=== PATIENT | female | born 1985 | race African-American/Black ===

== ENCOUNTER 2017-01-23 19:59 | Emergency (ER) | payer OTHER ==
[2017-01-23] VITALS (8 sets, daily range): BP systolic 125–167; BP diastolic 81–127
[~2017-01-23] VITALS: Ht 162.6 cm; Wt 63.5 kg
[2017-01-23 20:30] LABS: BASOPHILS % (AUTO) 1.8 % (0.0-2.0); EOSINOPHILS % (AUTO) 0.7 % (0.0-3.0); LYMPHOCYTES % (AUTO) 39.2 % (20.0-45.0); MEAN CORPUSCULAR HEMOGLOBIN 33.5 PG (27.0-31.0); MEAN CORPUSCULAR HGB CONC 34.5 G/DL (32.0-36.0); MEAN CORPUSCULAR VOLUME 97 FL (80-99); MEAN PLATELET VOLUME 7.3 FL (6.5-10.1); MONOCYTES % (AUTO) 6.2 % (1.0-10.0); NEUTROPHILS % (AUTO) 52.2 % (45.0-75.0); PLATELET COUNT 277 K/UL (150-450); RED BLOOD COUNT 4.53 M/UL (4.20-5.40); RED CELL DISTRIBUTION WIDTH 11.2 % (11.6-14.8); WHITE BLOOD COUNT 10.9 K/UL (4.8-10.8)
[2017-01-23 20:46] LABS: TROPONIN I < 0.30 ng/mL (<=0.30)
[2017-01-23 20:49] LABS: ALANINE AMINOTRANSFERASE 22 U/L (3-33); ALBUMIN/GLOBULIN RATIO 1.5 (1.0-2.7); ANION GAP 19 (5-15); ASPARTATE AMINO TRANSFERASE 21 U/L (5-40); CALCIUM 10.2 mg/dL (8.6-10.2); CARBON DIOXIDE 18 mEQ/L (20-30); CHLORIDE 99 mEQ/L (98-107); GLOMERULAR FILTRATION RATE > 60 mL/min (>60); HEMOLYSIS 10; POTASSIUM 3.1 mEQ/L (3.4-4.9); SODIUM 136 mEQ/L (135-145); TOTAL PROTEIN 8.4 g/dL (6.6-8.7)
[2017-01-23 21:00] LABS: CKMB < 1.5 ng/mL (< 3.8)
[2017-01-23] MEDS: Nitroglycerin Subl 0.4mg tab (Bottle Of 25) SL PRN ×2 (21:21→21:24)
[2017-01-23] MEDS ORDERED: Morphine Sulfate 4mg/ml Inj IVP ONE (21:45)
[2017-01-23] MEDS ORDERED: LISINOPRIL10 MG ORAL (22:30)
[2017-01-23] MEDS ORDERED: AMLODIPINE BESY10 MG ORAL (22:30)
--- NOTE | 2017-01-23 23:04 | Emergency Room Report ---
History of Present Illness General Chief Complaint: Chest Pain Source: Patient Present Illness HPI 31-year-old female presents ED for evaluation. Patient states she is having chest pain or shortness of breath which started approximately 30 minutes prior to arrival. Patient states pain is an 8/10, midsternal, sharp, nonradiating. Notes shortness of breath. Per triage patient is hypertensive and tachycardic. Patient states she has history of hypertension and used to take blood pressure medication but was stopped by her PMD. States the last time she checked her blood pressure it was normal. Denies smoking or drug use. No other aggravating relieving factors. Denies any other associated symptoms Allergies: Coded Allergies: No Known Allergies (Unverified , 01/23/17) Patient History Past Medical History: HTN Past Surgical History: none Pertinent Family History: none Social History: Denies: alcohol use, drug use, smoking Last Menstrual Period: n/a Now: No - on Depovera shot Immunizations: UTD Reviewed Nursing Documentation: PMH: Agreed, PSxH: Agreed Nursing Documentation-PMH Past Medical History: No History, Except For Hx Hypertension: Yes Review of Systems All Other Systems: negative except mentioned in HPI Physical Exam Vital Signs Date Time Temp Pulse Resp B/P Pulse Ox O2 Delivery O2 Flow Rate FiO2 01/23/17 20:05 96.6 153 30 172/133 100 Room Air Sp02 EP Interpretation: reviewed, normal General Appearance: alert, GCS 15, non-toxic, mild distress Head: normocephalic, atraumatic Eyes: bilateral eye PERRL, bilateral eye normal inspection ENT: hearing grossly normal, normal pharynx, no angioedema, normal voice Neck: full range of motion, supple/symm/no masses Respiratory: chest non-tender, lungs clear, normal breath sounds, speaking full sentences Cardiovascular #1: no edema, tachycardia Cardiovascular #2: 2+ carotid (R), 2+ carotid (L), 2+ radial (R), 2+ radial (L) , 2+ dorsalis pedis (R), 2+ dorsalis pedis (L) Gastrointestinal: normal bowel sounds, non tender, soft, non-distended, no guarding, no rebound Rectal: deferred Genitourinary: normal inspection, no CVA tenderness Musculoskeletal: back normal, gait/station normal, normal range of motion, non- tender Neurologic: alert, oriented x3, responsive, motor strength/tone normal, sensory intact, speech normal Psychiatric: judgement/insight normal, memory normal, mood/affect normal, no suicidal/homicidal ideation Reflexes: 3+ bicep (R), 3+ bicep (L), 3+ tricep (R), 3+ tricep (L), 3+ knee (R) , 3+ knee (L) Skin: normal color, no rash, warm/dry, well hydrated Lymphatic: no adenopathy Medical Decision Making Diagnostic Impression: Primary Impression: Hypertensive urgency Additional Impression: ACS (acute coronary syndrome) ER Course Hospital Course 31 -year-old female presents ED complaining of chest pain, shortness of breath, hypertensive and tachycardic Differential diagnoses include: DC/unstable angina, tachycardia, hypertensive urgency Clinical course Patient placed on 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 After initial history and physical I ordered labs, EKG, chest x-ray, Nitro labs reviewed- no leukocytosis, hemoglobin/hematocrit stable, electrolytes okay , troponins negative. EKG - sinus tachycardia, no acute changes intpereted by me Chest x-ray- unremarkable Patient given nitroglycerin x3 with blood pressure and heart rate improved. Still having chest pain. Given morphine with chest pain improved I believe patient should be admitted given history and risk factors. Patient does not want to be admitted. Patient states she wishes to go home. Understands the risks of leaving. Patient has competency to make her own decisions. Signed AMA form. I. I feel this is a highly complex case requiring extensive working including EKG/Rhythm strip, Xray/CT/US, Blood/urine lab work, repeat exams while in ED, and administration of strong opiates/narcotics for pain control, admission to hospital or close patient follow up. Diagnosis - hypertensive urgency, acs left AMA. given Rx of amlodipine, lisinopril. f/u with PMD. return to ED if symptosm recur/worsen Labs Test 01/23/17 20:15 White Blood Count 10.9 K/UL (4.8-10.8) Red Blood Count 4.53 M/UL (4.20-5.40) Hemoglobin 15.2 G/DL (12.0-16.0) Hematocrit 44.0 % (37.0-47.0) Mean Corpuscular Volume 97 FL (80-99) Mean Corpuscular Hemoglobin 33.5 PG (27.0-31.0) Mean Corpuscular Hemoglobin Concent 34.5 G/DL (32.0-36.0) Red Cell Distribution Width 11.2 % (11.6-14.8) Platelet Count 277 K/UL (150-450) Mean Platelet Volume 7.3 FL (6.5-10.1) Neutrophils (%) (Auto) 52.2 % (45.0-75.0) Lymphocytes (%) (Auto) 39.2 % (20.0-45.0) Monocytes (%) (Auto) 6.2 % (1.0-10.0) Eosinophils (%) (Auto) 0.7 % (0.0-3.0) Basophils (%) (Auto) 1.8 % (0.0-2.0) D-Dimer 365 ng/mL (<500) Sodium Level 136 mEQ/L (135-145) Potassium Level 3.1 mEQ/L (3.4-4.9) Chloride Level 99 mEQ/L (98-107) Carbon Dioxide Level 18 mEQ/L (20-30) Anion Gap 19 (5-15) Blood Urea Nitrogen 12 mg/dL (7-23) Creatinine 1.0 mg/dL (0.5-0.9) Estimat Glomerular Filtration Rate > 60 mL/min (>60) Glucose Level 136 mg/dL (74-106) Calcium Level 10.2 mg/dL (8.6-10.2) Total Bilirubin 0.8 mg/dL (0.0-1.2) Aspartate Amino Transf (AST/SGOT) 21 U/L (5-40) Alanine Aminotransferase (ALT/SGPT) 22 U/L (3-33) Alkaline Phosphatase 58 U/L (35-104) Total Creatine Kinase 156 U/L (26-140) Creatine Kinase MB < 1.5 ng/mL (< 3.8) Creatine Kinase MB Relative Index Troponin I < 0.30 ng/mL (<=0.30) Pro-B-Type Natriuretic Peptide 30 pg/mL (0-125) Total Protein 8.4 g/dL (6.6-8.7) Albumin 5.1 g/dL (3.5-5.2) Globulin 3.3 g/dL Albumin/Globulin Ratio 1.5 (1.0-2.7) EKG Diagnostic Results Rate: tachycardiac Rhythm: NSR ST Segments: no acute changes ASA given to the pt in ED: No - given by ems Rhythm Strip Diag. Results EP Interpretation: yes Rhythm: NSR, no PVC's, no ectopy Chest X-Ray Diagnostic Results Chest X-Ray Diagnostic Results : Chest X-Ray Ordered: Yes # of Views/Limited/Complete: 1 View Indication: Chest Pain EP Interpretation: Yes Interpretation: no consolidation, no effusion, no pneumothorax, no acute cardiopulmonary disease Impression: No acute disease Interpreting ER Provider: electronically signed by Jackson Mathews mD Last Vital Signs Date Time Temp Pulse Resp B/P Pulse Ox O2 Delivery O2 Flow Rate FiO2 01/23/17 21:46 111 21 153/106 99 Room Air 01/23/17 20:05 96.6 Status: improved Disposition: AGAINST MEDICAL ADVICE Condition: Stable Scripts Amlodipine Besylate* (AMLODIPINE BESYLATE*) 10 Mg Tablet 10 MG ORAL DAILY, #10 TAB Prov: JACKSON MATHEWS M.D. 01/23/17 Lisinopril* (LISINOPRIL*) 10 Mg Tablet 10 MG ORAL DAILY, #10 TAB Prov: JACKSON MATHEWS M.D. 01/23/17 Referrals: [employer] [facility],REFERRIN (PCP) Patient Instructions: Chest Pain Observation JACKSON MATHEWS M.D. Jan 23, 2017 23:04
--- NOTE | 2017-01-24 09:20 | Diagnostic Imaging Report ---
Indication: Chest pain Technique: Single portable AP view of the chest. Findings: Comparison: None. The bones and extra pulmonary soft tissues, cardiomediastinal silhouette, pulmonary vasculature and parenchyma, and pleural surfaces are unremarkable. IMPRESSION: Negative portable AP chest.
== END 2017-01-23 23:20 | disposition left against medical advice (07) ==
LOC: EMR 20:40
DX: I10 Essential (primary) hypertension (principal); I24.9 Acute ischemic heart disease, unspecified
CPT/HCPCS: 36415; 71010; 80053; 82550; 82553; 83880; 84484; 85025; 85379; 93005; 96374; 99284; J2270

== ENCOUNTER 2017-02-15 18:39 | Emergency (ER) | payer OTHER ==
[~2017-02-15] VITALS: Ht 160 cm; Wt 63.5 kg
[~2017-02-15 18:39] MED LIST: AMLODIPINE BESY10 MG ORAL; LISINOPRIL10 MG ORAL
[2017-02-15] MEDS ORDERED: NKM (18:54)
[2017-02-15] MEDS ORDERED: Tetracaine 0.5% Opth Soln LEFT EYE ONE (19:15)
[2017-02-15 20:11] LABS: BASOPHILS % (AUTO) 1.5 % (0.0-2.0); EOSINOPHILS % (AUTO) 1.8 % (0.0-3.0); MEAN CORPUSCULAR HEMOGLOBIN 33.7 PG (27.0-31.0); MEAN CORPUSCULAR HGB CONC 34.8 G/DL (32.0-36.0); MEAN CORPUSCULAR VOLUME 97 FL (80-99); MONOCYTES % (AUTO) 5.9 % (1.0-10.0); NEUTROPHILS % (AUTO) 57.8 % (45.0-75.0); PLATELET COUNT 235 K/UL (150-450); RED BLOOD COUNT 4.05 M/UL (4.20-5.40); RED CELL DISTRIBUTION WIDTH 11.3 % (11.6-14.8); WHITE BLOOD COUNT 9.8 K/UL (4.8-10.8)
[2017-02-15 20:25] VITALS: BP 165/106
[2017-02-15 20:38] LABS: ALANINE AMINOTRANSFERASE 14 U/L (3-33); ALBUMIN/GLOBULIN RATIO 1.6 (1.0-2.7); ANION GAP 9 (5-15); ASPARTATE AMINO TRANSFERASE 16 U/L (5-40); CALCIUM 9.7 mg/dL (8.6-10.2); CARBON DIOXIDE 26 mEQ/L (20-30); CHLORIDE 105 mEQ/L (98-107); GLOMERULAR FILTRATION RATE > 60 mL/min (>60); HEMOLYSIS 3; POTASSIUM 4.2 mEQ/L (3.4-4.9); SODIUM 140 mEQ/L (135-145); TOTAL PROTEIN 7.2 g/dL (6.6-8.7)
[2017-02-15 20:40] VITALS: BP 172/90
[2017-02-15 20:57] VITALS: BP 158/90
[2017-02-15] MEDS ORDERED: NORVASC5 MG ORAL (21:28)
[2017-02-15 21:40] VITALS: BP 158/100
--- NOTE | 2017-02-16 22:15 | Emergency Room Report ---
History of Present Illness General Chief Complaint: Eye Problems Source: Patient Present Illness HPI The patient is a 31-year-old female presenting with bilateral eye pain and blurred vision. The symptoms began this morning without any known cause. Pain is a 4/10 dull ache and does not radiate. No known provoking or relieving factors. She wears corrective lenses. She does admit to experiencing more stress lately due to work. She does admit to a history of hypertension but has not been taking her medications. She denies other symptoms including nausea, vomiting, fever, chills, dizziness, chest pain, shortness of breath Allergies: Coded Allergies: No Known Allergies (Unverified , 01/23/17) Patient History Past Medical History: see triage record, HTN Pertinent Family History: none Last Menstrual Period: depo Now: No Reviewed Nursing Documentation: PMH: Agreed, PSxH: Agreed Nursing Documentation-PMH Past Medical History: No History, Except For Hx Hypertension: Yes Review of Systems All Other Systems: negative except mentioned in HPI Physical Exam Vital Signs Date Time Temp Pulse Resp B/P Pulse Ox O2 Delivery O2 Flow Rate FiO2 02/15/17 18:49 99.0 67 18 197/135 98 Room Air Sp02 EP Interpretation: reviewed, normal General Appearance: no apparent distress, alert, GCS 15, non-toxic Head: normocephalic, atraumatic Eyes: bilateral eye EOMI, bilateral eye PERRL, bilateral eye normal inspection ENT: hearing grossly normal, normal pharynx, no angioedema, normal voice Neck: full range of motion, supple/symm/no masses Respiratory: chest non-tender, lungs clear, normal breath sounds, speaking full sentences Cardiovascular #1: regular rate, rhythm, no edema, no gallop, no murmur, no rub Gastrointestinal: normal bowel sounds, non tender, soft, non-distended, no guarding, no rebound Genitourinary: normal inspection, no CVA tenderness Musculoskeletal: back normal, gait/station normal, normal range of motion, non- tender Neurologic: alert, oriented x3, responsive, motor strength/tone normal, sensory intact, speech normal Psychiatric: judgement/insight normal, memory normal, mood/affect normal, no suicidal/homicidal ideation Skin: normal color, no rash, warm/dry, well hydrated Medical Decision Making PA Attestation Dr. Pearce is my supervising physician. Patient management was discussed with my supervising physician Diagnostic Impression: Primary Impression: Hypertensive emergency ER Course The patient is a 31-year-old female presenting with bilateral eye pain and blurred vision. Differential diagnoses considered but not limited to Conjunctivitis, glaucoma, retinal detachment, among others Physical exam: The patient has significant hypertension. PERRL. EOMI. No edema. No hyphema. No corneal haze. No injection. Ophthalmic exam reveals no signs of retinal detachment or hemorrhage. Blood work shows mildly elevated Cr. Otherwise unremarkable She is given one dose of clonidine 0.1mg with significant improvement in BP. Vision has improved with decrease in BP. She was informed of how important HTN management is and she will begin to take daily medication for HTN and FU with PMD as well as ophthalmology. She was told that admission would be best due to hypertensive urgency/emergency but has refused. Dr. Pearce has examined the patient as well. She is discharged home and is given ER precautions. Labs Test 02/15/17 19:59 02/15/17 20:30 White Blood Count 9.8 K/UL (4.8-10.8) Red Blood Count 4.05 M/UL (4.20-5.40) Hemoglobin 13.7 G/DL (12.0-16.0) Hematocrit 39.3 % (37.0-47.0) Mean Corpuscular Volume 97 FL (80-99) Mean Corpuscular Hemoglobin 33.7 PG (27.0-31.0) Mean Corpuscular Hemoglobin Concent 34.8 G/DL (32.0-36.0) Red Cell Distribution Width 11.3 % (11.6-14.8) Platelet Count 235 K/UL (150-450) Mean Platelet Volume 7.0 FL (6.5-10.1) Neutrophils (%) (Auto) 57.8 % (45.0-75.0) Lymphocytes (%) (Auto) 33.0 % (20.0-45.0) Monocytes (%) (Auto) 5.9 % (1.0-10.0) Eosinophils (%) (Auto) 1.8 % (0.0-3.0) Basophils (%) (Auto) 1.5 % (0.0-2.0) Sodium Level 140 mEQ/L (135-145) Potassium Level 4.2 mEQ/L (3.4-4.9) Chloride Level 105 mEQ/L (98-107) Carbon Dioxide Level 26 mEQ/L (20-30) Anion Gap 9 (5-15) Blood Urea Nitrogen 11 mg/dL (7-23) Creatinine 1.0 mg/dL (0.5-0.9) Estimat Glomerular Filtration Rate > 60 mL/min (>60) Glucose Level 95 mg/dL (74-106) Calcium Level 9.7 mg/dL (8.6-10.2) Total Bilirubin 0.4 mg/dL (0.0-1.2) Aspartate Amino Transf (AST/SGOT) 16 U/L (5-40) Alanine Aminotransferase (ALT/SGPT) 14 U/L (3-33) Alkaline Phosphatase 49 U/L (35-104) Total Protein 7.2 g/dL (6.6-8.7) Albumin 4.5 g/dL (3.5-5.2) Globulin 2.7 g/dL Albumin/Globulin Ratio 1.6 (1.0-2.7) Urine HCG, Qualitative Negative Urine Opiates Screen Negative (NEGATIVE) Urine Barbiturates Screen Negative (NEGATIVE) Phencyclidine (PCP) Screen Negative (NEGATIVE) Urine Amphetamines Screen Negative (NEGATIVE) Urine Benzodiazepines Screen Negative (NEGATIVE) Urine Cocaine Screen Negative (NEGATIVE) Urine Marijuana (THC) Screen Positive (NEGATIVE) Lab Results Impression CBC unremarkable. CMP shows mildly elevated Cr at 1.0 UA unremarkable Chest X-Ray Diagnostic Results Chest X-Ray Diagnostic Results : Chest X-Ray Ordered: Yes # of Views/Limited/Complete: 1 View Indication: Other - HTN EP Interpretation: Yes Interpretation: no consolidation, no effusion, no pneumothorax, no acute cardiopulmonary disease Impression: No acute disease Interpreting ER Provider: Dr. Ramses LEARY Scribe Text I am acting as scribe for my SP. No acute findings. Last Vital Signs Date Time Temp Pulse Resp B/P Pulse Ox O2 Delivery O2 Flow Rate FiO2 02/15/17 21:40 14 158/100 100 Room Air 02/15/17 20:57 71 02/15/17 20:40 98.8 Status: improved Disposition: HOME, SELF-CARE Condition: Improved Scripts Amlodipine Besylate (Norvasc) 5 Mg Tablet 5 MG ORAL DAILY, #30 TAB Prov: TERALFRED JO 02/15/17 Patient Instructions: Hypertension Additional Instructions: I discussed my findings with the patient. All questions and concerns have been answered. Treatment and medication compliance have been addressed. I advised the patient that they need to follow up with primary doctor and opthalmology as soon as possible. Return to ED if symptoms worsen, new symptoms arise, or if needed for any reason. Patient verbalized understanding of discharge instructions. ALFRED DELONG Feb 16, 2017 22:15
== END 2017-02-15 21:40 | disposition home or self-care (01) ==
LOC: EMR 19:18
DX: I10 Essential (primary) hypertension (principal); H57.13 Ocular pain, bilateral
CPT/HCPCS: 36415; 71010; 80053; 80300; 81025; 82962; 85025; 96374